=== PATIENT | female | born 1985 | race Caucasian/White ===

== ENCOUNTER 2021-06-12 00:44 | Emergency (ER) | payer MEDICAID ==
[~2021-06-12] VITALS: Ht 167.6 cm; Wt 6.0 kg
[2021-06-12 06:22] VITALS: BP 114/52
== END 2021-06-12 06:47 | disposition home or self-care (01) ==
LOC: ER 00:44 → EDBD 00:44 → ER 06:47
DX: F16.988 Hallucinogen use, unspecified with other hallucinogen-induced disorder (principal)
CPT/HCPCS: 93005; 99285

== ENCOUNTER 2021-09-01 17:27 | Emergency (ER) | payer MEDICAID ==
[~2021-09-01] VITALS: Ht 170.2 cm; Wt 78.0 kg
[2021-09-01 17:33] VITALS: BP 115/75
== END 2021-09-01 23:06 | disposition left against medical advice (07) ==
LOC: ER 17:27
DX: R68.89 Other general symptoms and signs (principal); Z53.21 Procedure and treatment not carried out due to patient leaving prior to being seen by health care provider

== ENCOUNTER 2021-10-25 06:48 | Emergency (ER) | payer MEDICAID ==
[~2021-10-25] VITALS: Ht 170.2 cm; Wt 78.5 kg
[2021-10-25 07:00] VITALS: BP 120/88
[2021-10-25] MEDS ORDERED: ACETAMINOPHEN 325MG TABLET PO ONE (07:30)
[2021-10-25] MEDS ORDERED: AMOX-424 PO (07:31)
[2021-10-25] MEDS ORDERED: TOPUD PO (07:31)
== END 2021-10-25 07:55 | disposition home or self-care (01) ==
LOC: ER 06:48
DX: K04.7 Periapical abscess without sinus (principal); F16.129 Hallucinogen abuse with intoxication, unspecified
CPT/HCPCS: 99281

== ENCOUNTER 2021-12-01 02:46 | Emergency (ER) | payer MEDICAID ==
[~2021-12-01] VITALS: Ht 165.1 cm; Wt 68.0 kg
[~2021-12-01 02:46] MED LIST: AMOX-424 PO; TOPUD PO
[2021-12-01] MEDS ORDERED: ONDANSETRON 4MG ODT PO STA (04:56)
[2021-12-01] MEDS ORDERED: MAGNESIUM/ALUMINUM HYDROXIDE/SIMETHICONE 30ML UDC PO STA (04:56)
[2021-12-01] MEDS ORDERED: HYDROCODONE/ACETAMINOPHEN 5/325MG TABLET PO STA (04:56)
[2021-12-01 05:30] LABS: BASOPHILS % 0.3 % (0.0-2.0); EOSINOPHILS % 0.6 % (0.0-5.0); HEMATOCRIT. 38.1 % (36.0-48.0); HEMOGLOBIN. 12.9 g/dL (12.0-16.0); MEAN CORPUSCULAR HEMOGLOBIN 31.5 pg (28.0-32.0); MEAN CORPUSCULAR VOLUME 93.1 fL (81.0-99.0); MEAN PLATELET VOLUME 7.6 fl (7.4-10.4); NEUTROPHILS % 58.1 % (40.0-76.0); PLATELET 355 x1000/uL (130-400); RED BLOOD CELL COUNT 4.09 mill/uL (4.2-5.4); RED CELL DISTRIBUTION WIDTH 13.7 % (11.6-14.6)
[2021-12-01 05:38] LABS: CHLORIDE 106 mEq/L (98-107)
[2021-12-01 05:42] LABS: ETHANOL BLOOD < 10 mg/dL
[2021-12-01] MEDS ORDERED: FAMO-135 MT (07:06)
[2021-12-01 08:00] VITALS: BP 110/62
== END 2021-12-01 08:20 | disposition home or self-care (01) ==
LOC: ER 02:46
DX: R07.89 Other chest pain (principal); R11.2 Nausea with vomiting, unspecified
CPT/HCPCS: 36415; 71045; 80053; 80320; 84484; 85025; 93005; 99285; Q0162; G0480

== ENCOUNTER 2022-04-18 07:34 | Emergency (ER) | payer MEDICAID ==
[~2022-04-18] VITALS: Ht 167.6 cm; Wt 76.0 kg
[~2022-04-18 07:34] MED LIST changes: +FAMO-135 MT
[2022-04-18 07:48] VITALS: BP 128/96
[2022-04-18] MEDS ORDERED: ACETAMINOPHEN 325MG TABLET PO ONE (10:00)
[2022-04-18 11:00] LABS: CLARITY URINE CLEAR (CLEAR); COLOR URINE YELLOW (YELLOW); KETONES URINE NEGATIVE (NEGATIVE); LEUKOCYTE ESTERASE URINE NEGATIVE (NEGATIVE); NITRITE URINE NEGATIVE (NEGATIVE); OCCULT BLOOD URINE NEGATIVE (NEGATIVE); PROTEIN URINE NEGATIVE (NEGATIVE); SPECIFIC GRAVITY URINE 1.009 (1.005-1.030)
== END 2022-04-18 11:34 | disposition home or self-care (01) ==
LOC: ER 08:23
DX: T19.2XXA Foreign body in vulva and vagina, initial encounter (principal); Z13.9 Encounter for screening, unspecified; X58.XXXA Exposure to other specified factors, initial encounter; Y93.89 Activity, other specified; Y92.89 Other specified places as the place of occurrence of the external cause; Y99.8 Other external cause status
CPT/HCPCS: 81003; 99284

== ENCOUNTER 2022-04-20 09:50 | Emergency (ER) | payer MEDICAID ==
[~2022-04-20] VITALS: Ht 170.2 cm; Wt 73.0 kg
[2022-04-20 09:51] VITALS: BP 120/75
[2022-04-20] MEDS ORDERED: ACETAMINOPHEN 325MG TABLET PO ONE (10:15)
== END 2022-04-20 13:34 | disposition left against medical advice (07) ==
LOC: ER 09:50
DX: M54.2 Cervicalgia (principal); F03.90 Unspecified dementia, unspecified severity, without behavioral disturbance, psychotic disturbance, mood disturbance, and anxiety
CPT/HCPCS: 99283